=== PATIENT | female | born 1950 | race Caucasian/White ===

== ENCOUNTER 2022-02-06 04:56 | Inpatient (IN) ==
[2022-02-06] MEDS ORDERED: Ipratropium/Albuterol Neb 3 ML IH ONE (05:09)
[2022-02-06] MEDS ORDERED: methylPREDNISolone 125 MG/2 ML VIAL IVP ONE (05:09)
[2022-02-06] MEDS ORDERED: cefTRIAXone 1,000 MG in 0.9 % Sodium Chloride 10 ML IVP ONE (05:18)
[2022-02-06] MEDS ORDERED: Doxycycline 100 MG in 0.9 % Sodium Chloride Mini Bag 100 ML IVPB ONE (05:18)
[2022-02-06 05:31] LABS: ABG Base Excess 3 mEq/L (-2 to 3); ABG HCO3 31 mEq/L (21-27); ABG Oxygen Saturation 92 % (95-98); ABG PCO2 64 mmHg (35-45); ABG PO2 72 mmHg (85-104); ABG TCO2 33 mEq/L (20-26)
[2022-02-06 05:45] LABS: Basophils % 0.5 %; Eosinophils # 0.3 K/mcL (0.0-0.6); Eosinophils % 2.8 %; Hematocrit 38.3 % (35.3-44.9); Hemoglobin 11.6 g/dL (11.5-15.4); Immature Granulocytes % 0.8 % (0-4); Lymphocytes # 1.2 K/mcL (0.6-4.6); Mean Corpuscular HGB Conc 30.3 g/dL (31.6-35.5); Mean Corpuscular Hemoglobin 27.6 pg (28.0-33.3); Mean Platelet Volume 8.7 fL (9.4-12.4); Monocytes # 0.5 K/mcL (0.0-1.3); Monocytes % 5.4 %; Neutrophils # 6.9 K/mcL (1.6-8.9); Platelet Count 142 K/mcL (140-400); Red Blood Count 4.21 M/mcL (3.82-4.97); Red Cell Distribution Width 15.9 % (11.5-14.5); Segmented Neutrophils % 77.5 %; White Blood Count 8.9 K/mcL (4.3-11.1)
[2022-02-06 05:52] LABS: Prothrombin Time 10.8 Seconds (9.4-12.1)
[2022-02-06 05:55] LABS: Activated Partial Thrombo Time 32.5 Seconds (26.0-36.0)
[2022-02-06 06:04] LABS: BUN/Creatinine Ratio 20 (6-26); Blood Urea Nitrogen 17 mg/dL (8-23); Calcium 8.9 mg/dL (8.6-10.3); Carbon Dioxide 33 mEq/L (23-29); Chloride 101 mEq/L (98-107); Glucose 190 mg/dL (70-105); Osmolality,Calculated 301 (280-300); Sodium 142 mEq/L (136-145); Troponin I < 0.03 ng/mL (< 0.04)
[2022-02-06 06:26] LABS: Adenovirus Not Detected (Not Detect); Bordetella Pertussis Not Detected (Not Detect); Chlamydophila pneumoniae Not Detected (Not Detect); Coronavirus 229E Not Detected (Not Detect); Coronavirus HKU1 Not Detected (Not Detect); Coronavirus NL63 Not Detected (Not Detect); Coronavirus OC43 Not Detected (Not Detect); Human Metapneumovirus Not Detected (Not Detect); Human Rhinovirus/Enterovirus Not Detected (Not Detect); Influenza A Subtype 2009 H1 Not Detected (Not Detect); Influenza B Not Detected (Not Detect); Mycoplasma pneumoniae Not Detected (Not Detect); Parainfluenza Virus 1 Not Detected (Not Detect); Parainfluenza Virus 2 Not Detected (Not Detect); Parainfluenza Virus 3 Not Detected (Not Detect); Parainfluenza Virus 4 Not Detected (Not Detect); Respiratory Syncytial Virus Not Detected (Not Detect); SARS-CoV-2 Not Detected (Not Detect)
[2022-02-06] MEDS ORDERED: Naloxone 0.4 MG/ML INJ IVP PRN (07:23)
[2022-02-06] MEDS ORDERED: D5% in Water 1,000 ML IVC PRN (07:59)
[2022-02-06] MEDS ORDERED: Dextrose Gel 15 GM/37.5 ML TUBE PO PRN ×2 (07:59)
[2022-02-06] MEDS ORDERED: *HR* Dextrose 50 % in Water (Syg) 50 ML SYRINGE IVP PRN (07:59)
[2022-02-06] MEDS: Insulin LISPRO 300 UNITS/3 ML VIAL SUBQ SCH ×3 (08:23→17:49)
[2022-02-06] MEDS: Ipratropium/Albuterol Neb 3 ML IH SCH ×4 (10:01→23:33)
[2022-02-06 10:36] LABS: Estimated Average Glucose 146 mg/dl; Hemoglobin A1C 6.7 %
[2022-02-06] MEDS ORDERED: Insulin LISPRO 300 UNITS/3 ML VIAL SUBQ SCH ×2 (11:30→21:00)
[2022-02-06] MEDS: Doxycycline 100 MG in 0.9 % Sodium Chloride Mini Bag 100 ML IVPB SCH (17:47)
[2022-02-06] MEDS: MethylPREDNISolone 40 MG/ML VIAL IVP SCH (17:48)
[2022-02-06] MEDS: Acetaminophen 325 MG TABLET PO PRN (21:10)
[2022-02-07 03:07] LABS: Hematocrit 35.8 % (35.3-44.9); Hemoglobin 10.8 g/dL (11.5-15.4); Mean Corpuscular HGB Conc 30.2 g/dL (31.6-35.5); Mean Corpuscular Hemoglobin 27.4 pg (28.0-33.3); Mean Corpuscular Volume 90.9 fL (83.0-100.0); Mean Platelet Volume 9.4 fL (9.4-12.4); Platelet Count 151 K/mcL (140-400); Red Blood Count 3.94 M/mcL (3.82-4.97); Red Cell Distribution Width 15.4 % (11.5-14.5); White Blood Count 9.2 K/mcL (4.3-11.1)
[2022-02-07 03:25] LABS: Calcium 9.1 mg/dL (8.6-10.3); Phosphorous 3.7 mg/dL (2.7-4.5); Potassium 4.5 mEq/L (3.5-5.1)
[2022-02-07] MEDS: Ipratropium/Albuterol Neb 3 ML IH SCH ×6 (04:07→23:51)
[2022-02-07] MEDS: MethylPREDNISolone 40 MG/ML VIAL IVP SCH ×2 (05:32→17:44)
[2022-02-07] MEDS: *HR* Enoxaparin 40 MG/0.4 ML SYRINGE SQ SCH (05:32)
[2022-02-07] MEDS: cefTRIAXone 2,000 MG in 0.9 % Sodium Chloride 20 ML IVP SCH (05:33)
[2022-02-07] MEDS: Doxycycline 100 MG in 0.9 % Sodium Chloride Mini Bag 100 ML IVPB SCH ×2 (05:33→17:44)
[2022-02-07] MEDS: Insulin LISPRO 300 UNITS/3 ML VIAL SUBQ SCH ×2 (08:42→11:52)
[2022-02-07] MEDS ORDERED: Patient Taking Own Medication 1 EACH PO SCH (09:30)
[2022-02-07] MEDS: Metoprolol XL (24 HR) Succ 50 MG TAB.ER.24H PO SCH (09:39)
[2022-02-07] MEDS: amLODIPine 5 MG TABLET PO SCH (09:39)
[2022-02-07 10:03] LABS: VBG HCO3 32 mEq/L (21-27); VBG PCO2 66 mmHg (41-51); VBG PO2 198 mmHg (25-50)
[2022-02-07] MEDS ORDERED: Iopamidol - 370 500 ML MLS IVP ONE (11:36)
[2022-02-07] MEDS ORDERED: *HR* Labetalol 20 MG/4 ML SYRINGE IVP ONE (11:42)
[2022-02-07] MEDS ORDERED: Insulin LISPRO 300 UNITS/3 ML VIAL SUBQ SCH ×2 (18:00→21:00)
[2022-02-07] MEDS: traZODone 50 MG TABLET PO SCH (21:09)
[2022-02-07] MEDS: Insulin DETEMIR 100 UNIT/ML X5UNITS SUBQ SCH (21:11)
[2022-02-08 02:01] LABS: Basophils % 0.2 %; Hematocrit 34.3 % (35.3-44.9); Immature Granulocytes % 2.4 % (0-4); Lymphocytes # 0.5 K/mcL (0.6-4.6); Lymphocytes % 4.7 %; Mean Corpuscular HGB Conc 29.2 g/dL (31.6-35.5); Mean Corpuscular Hemoglobin 27.5 pg (28.0-33.3); Mean Corpuscular Volume 94.5 fL (83.0-100.0); Mean Platelet Volume 9.1 fL (9.4-12.4); Monocytes # 0.3 K/mcL (0.0-1.3); Monocytes % 3.1 %; Neutrophils # 9.7 K/mcL (1.6-8.9); Platelet Count 130 K/mcL (140-400); Red Blood Count 3.63 M/mcL (3.82-4.97); Red Cell Distribution Width 15.5 % (11.5-14.5); Segmented Neutrophils % 89.6 %; White Blood Count 10.8 K/mcL (4.3-11.1)
[2022-02-08 02:09] LABS: VBG HCO3 35 mEq/L (21-27); VBG PCO2 64 mmHg (41-51); VBG PH 7.34 pH Units (7.32-7.42); VBG PO2 154 mmHg (25-50)
[2022-02-08 02:17] LABS: Calcium 8.9 mg/dL (8.6-10.3); Potassium 5.3 mEq/L (3.5-5.1)
[2022-02-08] MEDS: Ipratropium/Albuterol Neb 3 ML IH SCH ×6 (03:59→23:43)
[2022-02-08] MEDS: Doxycycline 100 MG in 0.9 % Sodium Chloride Mini Bag 100 ML IVPB SCH ×2 (04:45→16:48)
[2022-02-08] MEDS: *HR* Enoxaparin 40 MG/0.4 ML SYRINGE SQ SCH (04:47)
[2022-02-08] MEDS: cefTRIAXone 2,000 MG in 0.9 % Sodium Chloride 20 ML IVP SCH (04:48)
[2022-02-08] MEDS: MethylPREDNISolone 40 MG/ML VIAL IVP SCH ×3 (04:54→20:10)
[2022-02-08] MEDS: amLODIPine 5 MG TABLET PO SCH (08:09)
[2022-02-08] MEDS: Insulin LISPRO 300 UNITS/3 ML VIAL SUBQ SCH ×4 (08:09→21:36)
[2022-02-08] MEDS: Metoprolol XL (24 HR) Succ 50 MG TAB.ER.24H PO SCH (08:09)
[2022-02-08] MEDS ORDERED: Bumetanide 1 MG TABLET PO SCH (09:00)
[2022-02-08] MEDS: Acetaminophen 325 MG TABLET PO PRN ×2 (09:12→20:11)
[2022-02-08] MEDS: Bumetanide 1 MG/4 ML VIAL IVP SCH (16:49)
[2022-02-08] MEDS: traZODone 50 MG TABLET PO SCH (20:11)
[2022-02-08] MEDS: Insulin DETEMIR 100 UNIT/ML X5UNITS SUBQ SCH (20:12)
[2022-02-09 02:20] LABS: Basophils # 0.1 K/mcL (0.0-0.2); Basophils % 0.5 %; Hematocrit 35.3 % (35.3-44.9); Hemoglobin 10.3 g/dL (11.5-15.4); Immature Granulocytes % 5.5 % (0-4); Lymphocytes # 0.4 K/mcL (0.6-4.6); Lymphocytes % 3.6 %; Mean Corpuscular HGB Conc 29.2 g/dL (31.6-35.5); Mean Corpuscular Hemoglobin 27.9 pg (28.0-33.3); Mean Corpuscular Volume 95.7 fL (83.0-100.0); Mean Platelet Volume 9.5 fL (9.4-12.4); Monocytes # 0.3 K/mcL (0.0-1.3); Monocytes % 3.1 %; Platelet Count 136 K/mcL (140-400); Red Blood Count 3.69 M/mcL (3.82-4.97); Red Cell Distribution Width 15.6 % (11.5-14.5); Segmented Neutrophils % 87.3 %; White Blood Count 9.7 K/mcL (4.3-11.1)
[2022-02-09 02:36] LABS: Neutrophils # 8.5 K/mcL (1.6-8.9)
[2022-02-09] MEDS: Ipratropium/Albuterol Neb 3 ML IH SCH ×5 (03:38→20:21)
[2022-02-09] MEDS: cefTRIAXone 2,000 MG in 0.9 % Sodium Chloride 20 ML IVP SCH (05:16)
[2022-02-09] MEDS: Bumetanide 1 MG/4 ML VIAL IVP SCH (05:17)
[2022-02-09] MEDS: MethylPREDNISolone 40 MG/ML VIAL IVP SCH ×3 (05:18→20:39)
[2022-02-09] MEDS: *HR* Enoxaparin 40 MG/0.4 ML SYRINGE SQ SCH (05:49)
[2022-02-09] MEDS: Doxycycline 100 MG in 0.9 % Sodium Chloride Mini Bag 100 ML IVPB SCH ×2 (05:49→18:04)
[2022-02-09] MEDS: Insulin LISPRO 300 UNITS/3 ML VIAL SUBQ SCH ×4 (07:11→20:56)
[2022-02-09] MEDS ORDERED: Bumetanide 1 MG TABLET PO SCH (09:00)
[2022-02-09] MEDS: Metoprolol XL (24 HR) Succ 50 MG TAB.ER.24H PO SCH (09:39)
[2022-02-09] MEDS: amLODIPine 5 MG TABLET PO SCH (09:39)
[2022-02-09] MEDS ORDERED: Insulin DETEMIR 100 UNIT/ML X5UNITS SUBQ SCH (12:00)
[2022-02-09] MEDS: Acetaminophen 325 MG TABLET PO PRN (18:16)
[2022-02-09] MEDS: traZODone 50 MG TABLET PO SCH (20:38)
[2022-02-09] MEDS: Insulin DETEMIR 100 UNIT/ML X5UNITS SUBQ SCH (20:59)
[2022-02-10] MEDS: Ipratropium/Albuterol Neb 3 ML IH SCH ×7 (00:24→23:16)
[2022-02-10 05:00] LABS: Hematocrit 35.5 % (35.3-44.9); Hemoglobin 10.3 g/dL (11.5-15.4); Mean Corpuscular Hemoglobin 27.3 pg (28.0-33.3); Mean Corpuscular Volume 94.2 fL (83.0-100.0); Mean Platelet Volume 9.2 fL (9.4-12.4); Platelet Count 128 K/mcL (140-400); Red Blood Count 3.77 M/mcL (3.82-4.97); Red Cell Distribution Width 15.2 % (11.5-14.5); White Blood Count 8.9 K/mcL (4.3-11.1)
[2022-02-10] MEDS: MethylPREDNISolone 40 MG/ML VIAL IVP SCH ×2 (05:15→16:04)
[2022-02-10] MEDS: Doxycycline 100 MG in 0.9 % Sodium Chloride Mini Bag 100 ML IVPB SCH ×2 (05:16→16:50)
[2022-02-10] MEDS: *HR* Enoxaparin 40 MG/0.4 ML SYRINGE SQ SCH (05:17)
[2022-02-10] MEDS: cefTRIAXone 2,000 MG in 0.9 % Sodium Chloride 20 ML IVP SCH (05:17)
[2022-02-10 05:25] LABS: Lymphocytes # 0.7 K/mcL (0.6-4.6); Monocytes # 0.4 K/mcL (0.0-1.3); Neutrophils # 7.8 K/mcL (1.6-8.9); Platelet Estimate Decreased (Normal)
[2022-02-10 05:26] LABS: Calcium 8.7 mg/dL (8.6-10.3); Potassium 4.8 mEq/L (3.5-5.1)
[2022-02-10] MEDS: Insulin DETEMIR 100 UNIT/ML X5UNITS SUBQ SCH ×2 (08:18→20:09)
[2022-02-10] MEDS: Insulin LISPRO 300 UNITS/3 ML VIAL SUBQ SCH ×4 (08:19→20:03)
[2022-02-10] MEDS: amLODIPine 5 MG TABLET PO SCH (08:20)
[2022-02-10] MEDS: Metoprolol XL (24 HR) Succ 50 MG TAB.ER.24H PO SCH (08:20)
[2022-02-10] MEDS ORDERED: amLODIPine 5 MG TABLET PO ONE (09:20)
[2022-02-10] MEDS ORDERED: Sennosides 8.6 MG TABLET PO ONE (14:00)
[2022-02-10] MEDS: Saline Nasal Spray 44 ML BOTTLE NS PRN (17:45)
[2022-02-10] MEDS: traZODone 50 MG TABLET PO SCH (20:09)
[2022-02-11] MEDS: Ipratropium/Albuterol Neb 3 ML IH SCH ×6 (03:37→22:39)
[2022-02-11] MEDS: MethylPREDNISolone 40 MG/ML VIAL IVP SCH ×2 (05:14→16:24)
[2022-02-11] MEDS: Doxycycline 100 MG in 0.9 % Sodium Chloride Mini Bag 100 ML IVPB SCH ×2 (05:15→17:09)
[2022-02-11] MEDS: *HR* Enoxaparin 40 MG/0.4 ML SYRINGE SQ SCH (05:15)
[2022-02-11] MEDS: cefTRIAXone 2,000 MG in 0.9 % Sodium Chloride 20 ML IVP SCH (05:16)
[2022-02-11] MEDS: Insulin LISPRO 300 UNITS/3 ML VIAL SUBQ SCH ×4 (08:13→20:41)
[2022-02-11] MEDS: Insulin DETEMIR 100 UNIT/ML X5UNITS SUBQ SCH ×2 (08:13→20:41)
[2022-02-11] MEDS: Metoprolol XL (24 HR) Succ 50 MG TAB.ER.24H PO SCH (08:13)
[2022-02-11] MEDS: amLODIPine 5 MG TABLET PO SCH (08:14)
[2022-02-11 09:04] LABS: VBG HCO3 40 mEq/L (21-27); VBG PCO2 69 mmHg (41-51); VBG PH 7.37 pH Units (7.32-7.42); VBG PO2 196 mmHg (25-50)
[2022-02-11 09:17] LABS: Calcium 8.8 mg/dL (8.6-10.3); Potassium 4.8 mEq/L (3.5-5.1)
[2022-02-11] MEDS: Saline Nasal Spray 44 ML BOTTLE NS PRN ×2 (09:30→15:28)
[2022-02-11] MEDS: traZODone 50 MG TABLET PO SCH (20:41)
[2022-02-12] MEDS: Acetaminophen 325 MG TABLET PO PRN (00:03)
[2022-02-12 02:42] LABS: Calcium 8.6 mg/dL (8.6-10.3); Potassium 4.7 mEq/L (3.5-5.1)
[2022-02-12] MEDS: Ipratropium/Albuterol Neb 3 ML IH SCH ×5 (04:20→19:53)
[2022-02-12] MEDS: cefTRIAXone 2,000 MG in 0.9 % Sodium Chloride 20 ML IVP SCH (05:32)
[2022-02-12] MEDS: MethylPREDNISolone 40 MG/ML VIAL IVP SCH (05:32)
[2022-02-12] MEDS: *HR* Enoxaparin 40 MG/0.4 ML SYRINGE SQ SCH (05:33)
[2022-02-12] MEDS: Doxycycline 100 MG in 0.9 % Sodium Chloride Mini Bag 100 ML IVPB SCH ×2 (05:33→17:37)
[2022-02-12 09:00] LABS: VBG HCO3 41 mEq/L (21-27); VBG PCO2 83 mmHg (41-51); VBG PO2 196 mmHg (25-50)
[2022-02-12] MEDS: Metoprolol XL (24 HR) Succ 50 MG TAB.ER.24H PO SCH (09:08)
[2022-02-12] MEDS: amLODIPine 5 MG TABLET PO SCH (09:09)
[2022-02-12] MEDS: Insulin LISPRO 300 UNITS/3 ML VIAL SUBQ SCH ×2 (09:10→12:01)
[2022-02-12] MEDS: Insulin DETEMIR 100 UNIT/ML X5UNITS SUBQ SCH (09:19)
[2022-02-12] MEDS ORDERED: Bumetanide 1 MG/4 ML VIAL IVP SCH (09:30)
[2022-02-12 13:27] LABS: Adenovirus Not Detected (Not Detect); Bordetella Pertussis Not Detected (Not Detect); Chlamydophila pneumoniae Not Detected (Not Detect); Coronavirus 229E Not Detected (Not Detect); Coronavirus HKU1 Not Detected (Not Detect); Coronavirus NL63 Not Detected (Not Detect); Coronavirus OC43 Not Detected (Not Detect); Human Metapneumovirus Not Detected (Not Detect); Human Rhinovirus/Enterovirus DETECTED (Not Detect); Influenza A Subtype 2009 H1 Not Detected (Not Detect); Influenza B Not Detected (Not Detect); Mycoplasma pneumoniae Not Detected (Not Detect); Parainfluenza Virus 1 Not Detected (Not Detect); Parainfluenza Virus 2 Not Detected (Not Detect); Parainfluenza Virus 3 Not Detected (Not Detect); Parainfluenza Virus 4 Not Detected (Not Detect); Respiratory Syncytial Virus Not Detected (Not Detect); SARS-CoV-2 Not Detected (Not Detect)
[2022-02-12 14:42] LABS: VBG HCO3 41 mEq/L (21-27); VBG PCO2 72 mmHg (41-51); VBG PH 7.36 pH Units (7.32-7.42); VBG PO2 198 mmHg (25-50)
[2022-02-12] MEDS ORDERED: Insulin LISPRO 300 UNITS/3 ML VIAL SUBQ SCH ×2 (15:45)
[2022-02-12] MEDS: traZODone 50 MG TABLET PO SCH (20:10)
[2022-02-12] MEDS ORDERED: Insulin DETEMIR 100 UNIT/ML X5UNITS SUBQ SCH (21:00)
[2022-02-13] MEDS ORDERED: MethylPREDNISolone 40 MG/ML VIAL IVP SCH (09:00)
== END 2022-02-12 23:59 | disposition other institution (70) | DRG 190 ==
LOC: 2NENU 04:56 → EMEROOARM 04:56 → 2NENU 07:53 → SUATTDRO 11:32
PROVIDERS: ADMIT Internal Medicine; ATTEND Internal Medicine